=== PATIENT | male | born 1965 | race Two or more races ===

== ENCOUNTER 2023-02-09 11:43 | Inpatient (IN) | payer OTHER ==
[~2023-02-09] VITALS: Ht 172.7 cm; Wt 81.6 kg
[~2023-02-09 11:43] MED LIST: BENICAR5 MG PO; TRANXENE T-TAB7.5 MG PO; VERAPAMIL ER240 MG PO; VERAPAMIL HCL40 MG PO
[2023-02-09] MEDS ORDERED: GLUMETZA500 MG PO (11:57)
[2023-02-09 12:56] LABS: PH,URINE 8.5 (5.0-8.0); URINE APPEARANCE Clear; URINE BILIRRUBIN Negative (NEGATIVE); URINE BLOOD Negative; URINE COLOR Dark Yellow; URINE GLUCOSE Negative (NEGATIVE); URINE LEUKOCYTE Small; URINE NITRATE Negative; URINE PROTEIN 30 (NEGATIVE)
[2023-02-09 12:59] LABS: MEAN CELL VOLUME 88.8 fL (80.0-100.00); MEAN CORPUSCULAR HEMOGLOBIN 30.3 pg (27.00-32.0); MEAN CORPUSCULAR HGB CONC 34.1 g/dl (32.0-36.0); PLATELET COUNT 399 K/uL (150-450); RED BLOOD COUNT 4.28 M/uL (4.00-6.00); RED CELL DISTRIBUTION WIDTH 13.5 % (11.5-14.5); URINE BACTERIA 8.8 uL (0.0-1933); URINE RBC 4.7 uL (0.0-20.8); URINE WBC 12.9 uL (0.0-23.2)
[2023-02-09 13:12] LABS: URINE EPITHELIAL CELLS 0.3 uL (0.0-38.8)
[2023-02-09 13:24] LABS: ALBUMIN 3.8 gm/dL (3.4-5.0); BILIRUBIN TOTAL 2.6 mg/dL (0.3-1.2); CALCIUM 9.2 mg/dL (8.5-10.1); CREATININE SERUM 0.8 mg/dL (0.70-1.30); GFR 99.64; GLOBULINA 3.2 G/DL (2.4-3.5); POTASSIUM 4.91 mEq/L (3.5-5.1)
[2023-02-09 16:34] LABS: AMYLASE 45 U/L (25-115); LIPASE 31 U/L (13-75)
[2023-02-09 22:33] LABS: ALBUMIN 3.5 gm/dL (3.4-5.0); BILIRUBIN TOTAL 1.79 mg/dL (0.3-1.2); BILIRUBIN,CONJUGATED 0.82 mg/dL (0.0-0.2); BILIRUBIN,UNCONJUGATED 0.97 mg/dL (0.0-0.6); TOTAL PROTEIN 7.1 gm/dL (6.4-8.2)
[2023-02-09 22:34] LABS: C-REACTIVE PROTEIN 1.83 MG/DL (0.00-0.29)
[2023-02-10 06:58] LABS: HEMATOCRIT 34.7 % (39.0-48.0); HEMOGLOBIN 12.1 g/dL (13-16.00); MEAN CELL VOLUME 88.6 fL (80.0-100.00); MEAN CORPUSCULAR HEMOGLOBIN 30.8 pg (27.00-32.0); MEAN CORPUSCULAR HGB CONC 34.8 g/dl (32.0-36.0); PLATELET COUNT 364 K/uL (150-450); RED BLOOD COUNT 3.92 M/uL (4.00-6.00); RED CELL DISTRIBUTION WIDTH 13.6 % (11.5-14.5)
[2023-02-10 08:00] LABS: ALBUMIN 3.4 gm/dL (3.4-5.0); BILIRUBIN TOTAL 1.69 mg/dL (0.3-1.2); CALCIUM 8.8 mg/dL (8.5-10.1); CREATININE SERUM 0.68 mg/dL (0.70-1.30); GFR 120.19; GLOBULINA 2.8 G/DL (2.4-3.5); POTASSIUM 5.19 mEq/L (3.5-5.1); TOTAL PROTEIN 6.2 gm/dL (6.4-8.2)
[2023-02-11 08:22] LABS: HEMATOCRIT 33.2 % (39.0-48.0); HEMOGLOBIN 11.5 g/dL (13-16.00); MEAN CELL VOLUME 88.9 fL (80.0-100.00); MEAN CORPUSCULAR HEMOGLOBIN 30.7 pg (27.00-32.0); MEAN CORPUSCULAR HGB CONC 34.5 g/dl (32.0-36.0); PLATELET COUNT 320 K/uL (150-450); RED BLOOD COUNT 3.74 M/uL (4.00-6.00); RED CELL DISTRIBUTION WIDTH 13.8 % (11.5-14.5)
[2023-02-11 08:48] LABS: BILIRUBIN TOTAL 3.19 mg/dL (0.3-1.2); BILIRUBIN,CONJUGATED 2.06 mg/dL (0.0-0.2); BILIRUBIN,UNCONJUGATED 1.13 mg/dL (0.0-0.6); CALCIUM 8.7 mg/dL (8.5-10.1); CREATININE SERUM 0.73 mg/dL (0.70-1.30); GFR 110.74; MAGNESIUM 2.1 mg/dL (1.8-2.4); POTASSIUM 4.22 mEq/L (3.5-5.1); TOTAL PROTEIN 5.8 gm/dL (6.4-8.2)
[2023-02-11 14:54] LABS: ob NEGATIVE (NEGATIVE)
[2023-02-11 14:56] LABS: FECAL LEUKOCYTES NEGATIVE (NEGATIVE)
[2023-02-13 06:23] LABS: HEMATOCRIT 33.6 % (39.0-48.0); HEMOGLOBIN 11.5 g/dL (13-16.00); MEAN CELL VOLUME 88.4 fL (80.0-100.00); MEAN CORPUSCULAR HEMOGLOBIN 30.4 pg (27.00-32.0); MEAN CORPUSCULAR HGB CONC 34.3 g/dl (32.0-36.0); PLATELET COUNT 367 K/uL (150-450); RED CELL DISTRIBUTION WIDTH 13.5 % (11.5-14.5)
[2023-02-13 06:58] LABS: BILIRUBIN TOTAL 1.64 mg/dL (0.3-1.2); CALCIUM 9.1 mg/dL (8.5-10.1); CREATININE SERUM 0.62 mg/dL (0.70-1.30); GFR 133.71; MAGNESIUM 2.1 mg/dL (1.8-2.4); PHOSPHOROUS 3.6 mg/dL (2.5-4.9); POTASSIUM 4.82 mEq/L (3.5-5.1)
[2023-02-13 07:03] LABS: BILIRUBIN TOTAL 1.61 mg/dL (0.3-1.2); BILIRUBIN,UNCONJUGATED 0.61 mg/dL (0.0-0.6)
[2023-02-13 08:38] LABS: INR 1.02; PARTIAL THROMBOPLASTIN TIME 28.8 SECONDS (22.0-34.0); PROTHROMBIN TIME 10.7 SECONDS (9.0-11.5)
[2023-02-14 05:32] LABS: ALBUMIN 3.1 gm/dL (3.4-5.0); BILIRUBIN TOTAL 1.07 mg/dL (0.3-1.2); BILIRUBIN,CONJUGATED 0.56 mg/dL (0.0-0.2); BILIRUBIN,UNCONJUGATED 0.51 mg/dL (0.0-0.6); TOTAL PROTEIN 5.9 gm/dL (6.4-8.2)
[2023-02-14 11:12] LABS: hav igm Negative (Negative); hcv Non Reactive (Non Reactive); hep b c Negative (Negative)
[2023-02-14] MEDS ORDERED: DOXAZOSIN MESYLA4 MG PO (16:11)
[2023-02-14] MEDS ORDERED: NIFEDIPINE ER30 M1 PO (16:13)
[2023-02-14] MEDS ORDERED: VALSARTAN80 MG PO (16:14)
== END 2023-02-14 17:07 | disposition home or self-care (01) | DRG 445 ==
LOC: ER 11:43 → MEDI 20:37 → MEDJ 20:37
PROVIDERS: Emergency Medicine; Internal Medicine; Internal Medicine Gastroenterology; ADMIT Internal Medicine; ATTEND Internal Medicine
PROC: BW21ZZZ Computerized Tomography (CT Scan) of Abdomen and Pelvis (ICD-10-PCS; principal; 2023-02-09)
PROC: BF37ZZZ Magnetic Resonance Imaging (MRI) of Pancreas (ICD-10-PCS; 2023-02-10)
PROC: 0F798ZZ Dilation of Common Bile Duct, Via Natural or Artificial Opening Endoscopic (ICD-10-PCS; 2023-02-13)
DX: K80.50 Calculus of bile duct without cholangitis or cholecystitis without obstruction (principal); B17.9 Acute viral hepatitis, unspecified; R74.01 Elevation of levels of liver transaminase levels; E78.49 Other hyperlipidemia; I10 Essential (primary) hypertension; N28.1 Cyst of kidney, acquired; D72.828 Other elevated white blood cell count; E80.6 Other disorders of bilirubin metabolism

== ENCOUNTER 2025-03-19 09:48 | Outpatient (CLI) | payer OTHER ==
[~2025-03-19 09:48] MED LIST changes: +DOXAZOSIN MESYLA4 MG PO; +GLUMETZA500 MG PO; +NIFEDIPINE ER30 M1 PO; +VALSARTAN80 MG PO
== END 2025-03-19 09:49 | disposition home or self-care (01) ==
LOC: SONOGRAMA 09:48
DX: I12.9 Hypertensive chronic kidney disease with stage 1 through stage 4 chronic kidney disease, or unspecified chronic kidney disease (principal); N18.1 Chronic kidney disease, stage 1